=== PATIENT | male | born 1965 | race Caucasian/White ===

== ENCOUNTER 2021-12-29 12:30 | Outpatient (RCR) | payer OTHER, SELFPAY ==
--- NOTE | 2021-10-12 09:34 | PTOPEVAL ---
PHYSICAL THERAPY EVALUATION AND PLAN OF CARE Thank you for referring Benny Shane to [facility].? The patient is scheduled to be seen for therapy? 1x/week for 6 weeks. Please review, sign, date and return this plan of care SONI. I agree with and certify that the following plan of care is medically necessary. Referring Physician Date Attending Provider: Yosvany Hector, AKBAR Diagnosis bilateral amputee Onset 2016 Subjective Information Right transtibial amputation Query Text:As Reported By Patient/ in 2016 and did have a Family prosthetic at the time. States his function was pretty good but he did have a constant sore on the right residual limb. Started to experience pain in the left LE and started to favor causing more pain and bigger sore in the right. In 2021 he had a debridement of the right LE sore and then the left LE was amputed transtibial. He does have bilateral prosthetics today. He is using a wheelchair independently. He is walking with a cane short distances. Driving with hand controls. 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 Evaluation reveals significant deficit in bilateral hip and core strength with abnormal gait pattern and impaired balance. He require
--- NOTE | 2021-11-23 08:53 | PCPTNOTE ---
Patient called & cancelled scheduled appointment this date. He is starting a new job and it conflicted with therapy time.
--- NOTE | 2021-12-03 16:28 | PTOPEVAL ---
PHYSICAL THERAPY PROGRESS REPORT AND PLAN OF CARE UPDATE Thank you for referring Benny Shane to [facility].? The patient is scheduled to be seen for therapy? 1x/week for 6 weeks. Please review, sign, date and return this plan of care SONI. I agree with and certify that the following plan of care is medically necessary. Referring Physician Date Attending Provider: Yosvany Hector PA-C Problem Diagnosis bilateral amputee Onset 2017 Subjective Information Feels like he is overall doing Query Text:As Reported By Patient/ well. started a job 15 hours Family a week at [employer] to help him to be out and on his feet more. He reports that stairs continue to give him difficulty and walking on uneven surfaces. Lower Extremity Muscle Strength Testing Hip Strength Bilateral Hip Flexion Strength 5 Normal Hip Extension Strength 3 Fair Hip Abduction Strength 3 Fair Hip Adduction Strength 3+ Fair + Knee Strength Bilateral Knee Flexion Strength 4+ Good + Knee Extension Strength 4+ Good + Balance Assessment Mora Balance Assessment Sitting to Standing Independent w/Hands Unsupported Stance Ability Safely- 2 minutes Sitting Unsupported, Feet on Floor Safely- 2 minutes Standing to Sitting Safely, Minimal Hand Use Transfer Ability Safely, Hand Use Unsupported Stance- Eyes Closed Supervision, 10 seconds Unsupported Stance- Feet Together Supervision to maintain Reaching Forward while Standing Safely, 5 inches steffen house supervisor Object From Floor Requires Supervision Look Behind Shoulder - Standing Turns Sideways Only Turning 360 Degrees Supervision/Verbal Cues Unsupported Stance, Alternating Feet on 2 Steps w/Minimum Assist Stair Unsupported Tandem Stance Small Step- 30 seconds Unilateral Leg Stance Lifts Leg/Unable to Hold MORA Balance Evaluation Total Score (/56 35 points) Time Up Go (TUG) Timed Up and Go Test (TUG) (Seconds) 13 Assistive Devices Cane, Straight 5 Time Sit to Stand Time in Seconds 14.42 Gait Assessment Gait Pattern Assessment Gait Pattern Trendelenburg Gait Other Gait Observations continues to have left Trendelenburg through trunk when walking with straight cane 2 Minute Walk Total Distance Walked (feet) 361 2 Minute Walk Gait Speed Score (feet/ 3.00 second) PT Clinical Summary Benny is a 55 yo male presenting to outpatient phys
--- NOTE | 2021-12-15 13:22 | PCPTNOTE ---
Patient did not show up for scheduled appointment this date; called and left voicemail.
--- NOTE | 2021-12-31 08:42 | PCPTNOTE ---
This treatment is being continued on visit number [id number]. Please see documentation on both accounts to view progress. Completed interventions, outcomes, and problems have been marked as Inactive to facilitate the copying of the Care plan routine for recurring accounts.
== END 2021-12-31 07:24 | disposition home or self-care (01) ==
LOC: ANHPT 12:30
PROVIDERS: PCP Family Medicine; Visit Provider Physician Assistant
DX: Z47.81 Encounter for orthopedic aftercare following surgical amputation (principal); Z89.511 Acquired absence of right leg below knee; Z89.512 Acquired absence of left leg below knee
CPT/HCPCS: 97110; 97112; 97116; 97163; 97530

== ENCOUNTER 2022-01-05 07:24 | Outpatient (RCR) | payer OTHER, SELFPAY ==
--- NOTE | 2021-12-31 08:43 | PCPTNOTE ---
The treatment documented on this account is a continuation of the treatment documented on visit number [id number]. Please see documentation on both accounts to view progress. The Plan of Care has been transitioned and updated within the new V#. I have addressed and agree with the discipline specific Problems, Interventions, and Goals for the current certification period. Completed interventions, outcomes, and problems have been marked as Inactive to facilitate the copying of the Care plan routine for recurring accounts.
--- NOTE | 2022-01-06 08:29 | PCPTNOTE ---
PHYSICAL THERAPY DISCHARGE NOTE Attending Provider: Yosvany Hector PA-C Patient:Benny Shane Date of :1965 Benny has participated in physical therapy since 10/12/21 for prosthetic and gait training. He had a total of 10 visits. He demonstrates gait speed of 4.45ft/second with a cane and performed timed up and go in 10seconds. He demonstrate 5xSit to physical instructor 12.55seconds. Her reports independence in all tasks at home and is starting a new job at a [employer]. He will be discharged from PT at this time. He does have a home exercise program. The goals were met. Thank you for referring this patient to [facility]. Please review, sign, date and return this discharge summary SONI. I have been updated about the patient's current status and I agree with discharge from the above service at this time. Referring Physician Date
== END 2022-03-22 09:25 | disposition home or self-care (01) ==
LOC: ANHPT 07:24
PROVIDERS: PCP Family Medicine; Visit Provider Physician Assistant
DX: Z47.81 Encounter for orthopedic aftercare following surgical amputation (principal); Z89.511 Acquired absence of right leg below knee; Z89.512 Acquired absence of left leg below knee
CPT/HCPCS: 97530

== ENCOUNTER 2022-03-03 14:42 | Outpatient (CLI) | payer OTHER, SELFPAY ==
[2022-03-03 15:55] LABS: Basophils Percent Auto 0.5 % (0.2-1.2); Eosinophils Absolute Auto 0.1 K/mm3 (0-0.3); Eosinophils Percent Auto 1.1 % (0-4.4); Hematocrit 46.8 % (42.0-52.0); Hemoglobin 15.2 g/dL (14.0-18.0); Immature Granulocyte Absolute 0.02 K/mm3 (0.00-0.031); Immature Granulocyte Percent A 0.3 % (0-0.5); Lymphocytes Absolute Auto 1.36 K/mm3 (0.9-3.2); Lymphocytes Percent Auto 22.3 % (18.3-44.2); Mean Corpuscular HGB Conc 32.5 g/dl (32-36); Mean Corpuscular Hemoglobin 28.2 pg (26-34); Mean Corpuscular Volume 86.8 fl (80-100); Mean Platelet Volume 10.3 fl (7.4-10.4); Monocytes Absolute Auto 0.7 K/mm3 (0.1-0.6); Monocytes Percent Auto 12.1 % (2.6-8.5); Neutrophils Absolute Auto 3.9 K/mm3 (1.3-6.7); Neutrophils Percent Auto 63.7 % (45.5-73.1); Platelet Count Result 217 k/mm3 (150-375); Red Blood Count 5.39 M/mm3 (4.6-6.20); Red Cell Distribution Width 12.9 % (11.5-14.5); White Blood Count 6.1 K/mm3 (4.5-10.0)
[2022-03-03 16:01] LABS: Alanine Aminotransferase 17 U/L (6-50); Albumin Level 4.4 g/dL (3.5-5.1); Alkaline Phosphatase 76 U/L (38-126); Anion Gap 15 mmol/L (8-16); Aspartate Amino Transferase 23 U/L (17-59); Bilirubin,Total 0.5 mg/dL (0.2-1.3); Blood Urea Nitrogen 10 mg/dL (9-20); Calcium 9.3 mg/dL (8.4-10.2); Carbon Dioxide 22 mmol/L (22-30); Chloride 103 mmol/L (98-107); Estimated Glomerular Filt Rate > 60; Glucose 135 mg/dL (65-110); Potassium 3.6 mmol/L (3.4-5.0); Sodium 140 mmol/L (137-145)
== END 2022-03-03 14:43 | disposition home or self-care (01) ==
LOC: ANHLAB 14:44
PROVIDERS: PCP Family Medicine; Visit Provider Family Medicine
DX: R19.7 Diarrhea, unspecified (principal)
CPT/HCPCS: 36415; 80053; 85025